=== PATIENT | female | born 1990 | race Asian ===

== ENCOUNTER 2016-09-24 22:10 | Emergency (ER) | payer BC ==
[2016-09-24 22:17] VITALS: TEMP 98.8
[2016-09-24] MEDS ORDERED: DEXAMETHASONE 4 MG/ML VIAL IVP ONE (22:48)
[2016-09-24] MEDS ORDERED: LIDOCAINE 1% 80 MG in NS 100 ML IV ONE (22:48)
[2016-09-24] MEDS ORDERED: KETOROLAC 15 MG/1 ML SDV IVP/IM ONE (22:48)
[2016-09-24] MEDS ORDERED: NS 1,000 ML IV ONE (22:48)
--- NOTE | 2016-09-24 22:56 | EDPHY ---
H & P Stated Complaint: fever, nausea, dyspnea Time Seen by Provider: 09/24/16 22:30 HPI/ROS: HPI The patient presents with multiple symptoms including headache, fevers, shortness of breath, and vomiting today. She says she has been sick for the last 9 days, symptoms began with headache which is diffuse, throbbing in nature , started slowly and has been intermittent. It is worse with movement. She has taken Advil which is somewhat helpful for the pain. She has been sleeping more than usual because of the headache. Today she had 2 episodes of nonbloody nonbilious vomiting. She says her breathing feels constricted, however now is normal. She has been sneezing and also has rhinorrhea. She has been measuring her temperature 3 times a day and has had low-grade fevers from 99-100. She was seen about 5 days ago at an urgent care and given albuterol with instructions to use Advil and allergy medication. She is not much better. She. REVIEW OF SYSTEMS Constitutional: No fever, no chills. Eyes: No discharge. ENT: No sore throat. Cardiovascular: No chest pain, no palpitations. Respiratory: No cough, positive for shortness of breath. Gastrointestinal: No abdominal pain, positive for vomiting. Genitourinary: No hematuria. Musculoskeletal: No back pain. Skin: No rashes. Neurological: Positive for headache. PMHx: Healthy Soc Hx: Visiting from [place] PHYSICAL General Appearance: Alert, no distress Eyes: Pupils equal and round no pallor or injection, there is reported pain with extraocular movements ENT, Mouth: Mucous membranes moist, posterior pharynx is slightly injected Respiratory: There are no retractions, lungs are clear to auscultation Cardiovascular: Regular rate and rhythm Gastrointestinal: Abdomen is soft and non-tender, no masses, bowel sounds normal Neurological: A&O, cranial nerves 2-12 intact, 5/5 strength of upper and lower extremities which is symmetric Skin: Warm and dry, no rashes Musculoskeletal: Neck is supple non tender, no nuchal rigidity Extremities: symmetrical, full range of motion Psychiatric: Patient is oriented X 3, there is no agitation Source: Patient Exam Limitations: No limitations - Personal History LMP (Females 10-55): 1-7 Days Ago Current Tetanus/Diphtheria Vaccine: Yes - Medical/Surgical History Hx Asthma: No Hx Chronic Respiratory Disease: No Hx Diabetes: No Hx Cardiac Disease: No Hx Renal Disease: No Hx Cirrhosis: No Hx Alcoholism: No Hx HIV/AIDS: No Hx Splenectomy or Spleen Trauma: No Other PMH: PSHx: R eye. PMHx: environmental allergies - Social History Smoking Status: Never smoked Constitutional: Initial Vital Signs Temperature (C) 37.1 C 09/24/16 22:13 Heart Rate 85 09/24/16 22:13 Respiratory Rate 14 09/24/16 22:13 Blood Pressure 99/66 L 09/24/16 22:13 O2 Sat (%) 97 09/24/16 22:13 O2 Delivery Mode Room Air Allergies/Adverse Reactions: No Known Allergies Allergy (Unverified 09/24/16 22:12) Home Medications: Medication Instructions Recorded Albuterol 09/24/16 [id number] 09/24/16 Medical Decision Making Differential Diagnosis: This is a healthy 26-year-old female who presents with 9 days of headache with low-grade fevers, rhinorrhea, vomiting some sneezing. On exam, she has a normal neurologic evaluation and appears quite well. Differential diagnosis includes influenza, viral syndrome, new onset migraine, doubt meningitis given no photophobia or nuchal rigidity, doubt subarachnoid hemorrhage given normal neurologic exam. In the emergency room, patient received treatment for her headache with improvement in her symptoms. Basic labs were checked and did reveal mild anemia. The patient says that she has been on supplemental iron before and I have encouraged her to resume this. I feel she may have a migraine verses a viral syndrome. I have encouraged her to drink plenty of fluids, sleep well and she can take Excedrin migraine as needed for the headache. I have discussed return precautions for the emergency room with her. Departure - Departure Disposition: Home, Routine, Self-Care Clinical Impression: Headache Qualifiers: Headache type: unspecified Headache chronicity pattern: acute headache Intractability: not intractable Qualified Code(s): R51 - Headache Condition: Good Instructions: Acute Headache (ED) Additional Instructions: Please make sure to drink plenty of fluids. You can take Excedrin migraine to help with the headache. You should return to the emergency room if your worse in any way. Referrals: NONE *PRIMARY CARE P,. [Primary Care Provider] - As per Instructions
[2016-09-24 23:17] LABS: % IMMATURE GRANULYOCYTES 0.3 % (0.0-1.1); ABSOLUTE IMMATURE GRANULOCYTES 0.02 10^3/uL (0.00-0.10); ADD DIFF? NO; ADD MORPH? NO; ADD SCAN? NO; ATYPICAL LYMPHOCYTE FLAG 20 (0-99); FRAGMENT RBC FLAG 0 (0-99); HEMATOCRIT 35.1 % (38.0-47.0); LEFT SHIFT FLG 0 (0-99); LIPEMIA HEMOLYSIS FLAG 90 (0-99); MEAN CELL HEMOGLOBIN 31.3 pg (27.9-34.1); MEAN CELL HEMOGLOBIN CONCENTR. 34.2 g/dL (32.4-36.7); MEAN CELL VOLUME 91.4 fL (81.5-99.8); PLATELET CLUMPS FLAG 0 (0-99); PLATELET COUNT 186 10^3/uL (150-400); RED BLOOD CELL COUNT 3.84 10^6/uL (4.18-5.33); RED CELL DISTRIBUTION WIDTH 10.6 % (11.5-15.2)
[2016-09-24 23:26] LABS: ALANINE AMINOTRANSFERASE 62 IU/L (9-52); ALKALINE PHOSPHATASE 72 IU/L (38-126); ANION GAP 10 mEq/L (8-16); ASPARTATE AMINOTRANSFERASE 35 IU/L (14-46); BILIRUBIN,TOTAL 0.6 mg/dL (0.1-1.4); CALCIUM 8.9 mg/dL (8.5-10.4); CARBON DIOXIDE 21 mEq/l (22-31); CHLORIDE 102 mEq/L (97-110); CREATININE 0.6 mg/dL (0.6-1.0); GLOMERULAR FILTRATION RATE > 60; GLUCOSE 102 mg/dL (70-100); POTASSIUM 4.3 mEq/L (3.5-5.2); SODIUM 133 mEq/L (134-144); TOTAL PROTEIN 6.9 g/dL (6.3-8.2)
[2016-09-25 00:15] VITALS: BP 93/61; PULSE 76; RESP 16; O2SAT 96
== END 2016-09-25 00:31 | disposition home or self-care (01) ==
DX: R51 Headache (principal)
CPT/HCPCS: 96374; J1100; J1885